=== PATIENT | male | born 1970 | race Caucasian/White ===

== ENCOUNTER → 2016-03-24 | Outpatient (CLI) | payer BC ==
--- NOTE | 2016-03-24 11:45 | ECHOS ---
DATE OF SERVICE: 03/24/2016 AGE: 45Y SEX: M HT: 69" WT: 170 lbs. Protocol Alonzo: X Others: Stress Echo Stage: 5 Dur. of Exercise: 13:45 *Heart Rate Blood Pressure *Rest: 78 Rest: 97/46 * *Max. Achieved: 151 Maximum BP: 141/66 85% PMHR: 149 100% PMHR: 175 *METS: 13.8 INDICATIONS: Abnormal EKG. MEDICATIONS: Prilosec. CLINICAL INFORMATION: Abnormal EKG, and history of smoking 1/2 pack of cigarettes a day for 15 years, not on any medications other than Prilosec. Resting EKG shows sinus rhythm, rate of 78 beats per minute, FL interval 0.16, QRS 0.08, normal ST-T waves. Utilizing a standard Alonzo protocol, a symptom-limited treadmill test was performed. Patient exercised for total of 13 minutes and 45 seconds, attained a peak heart rate of 151 beats per minute, which is approximately 86% predicted maximum heart rate without any chest pain or pressure, a couple of PVCs noted at peak exertion without any chest pain or pressure or ST segment deviations indicative of ischemia. Baseline images show normal thickening and contractibility. Postexercise images show improved contractibility and thickening consistent with normal stress echocardiogram. IMPRESSION: 1. Normal stress echocardiogram. 2. Patient has excellent cardiopulmonary fitness as indicated by O2 max and METS. 3. Patient attained peak metabolic activity equivalent to 14 to 15 METS.
== END | disposition home or self-care (01) ==
LOC: RADNMMAIN 10:42
PROVIDERS: ATTEND Family Medicine
DX: R94.31 Abnormal electrocardiogram [ECG] [EKG] (principal)
CPT/HCPCS: 93017; 93350

== ENCOUNTER 2017-10-18 09:42 | Day surgery (SDC) | payer BC ==
[2017-10-16 09:07] VITALS: BMI 25.1
[~2017-10-18 09:42] MED LIST: LACTATED RINGERS 1,000 ML IV SCH; LIDOCAINE 1% 20 ML VIAL (10MG/ML) FOR IV START INTRADERMA PRN
[2017-10-18 10:32] VITALS: RESP 16; TEMP 98
[2017-10-18] MEDS ORDERED: PROPOFOL 10 MG/ML 20 ML VIAL IV ONE (11:11)
[2017-10-18] MEDS ORDERED: LIDOCAINE 1% INJ 10MG/ML (20 ML MDV) ONE (11:11)
--- NOTE | 2017-10-18 11:28 | P.PCN ---
Date of Procedure: 10/18/17 Procedure(s) Performed: BRIEF HISTORY: Patient is a 47-year-old pleasant to 8 male, scheduled for an elective colonoscopy as a part of screening for colorectal neoplasia and family history of colon cancer. His mom was diagnosed with colon cancer at age 80. PROCEDURE PERFORMED: Colonoscopy with snare polypectomy. PREOPERATIVE DIAGNOSIS: Screening for colon cancer/family history of colon cancer. IV sedation per Anesthesia. PROCEDURE: After informed consent was obtained, the patient, was brought into the endoscopy unit. IV sedation was administered by Anesthesia under continuous monitoring. Digital rectal examination was normal. Initially the Olympus CF- 160 flexible video colonoscope was then inserted in the rectum, gradually advanced into the cecum without any difficulty. Careful examination was performed as the scope was gradually being withdrawn. Ileocecal valve and the appendiceal orifice were visualized and appeared normal. Prep was excellent. Mucosa of the cecum, ascending colon, transverse colon, descending colon appeared normal. In the sigmoid colon at 30 cm from the anal was there was a 1 cm pedunculated polyp removed by snare polypectomy. The rest of the, sigmoid colon, and rectum appeared normal. Retroflexion was performed in the rectum and no lesions were seen. The patient tolerated the procedure well. IMPRESSION: 1 cm pedunculated sigmoid colon polyp serous was snare polypectomy Rest of the colon appeared normal RECOMMENDATIONS: Findings of this examination were discussed with the patient as well as his family. He was advised to follow with the biopsy results. He was advised to have a repeat surveillance colonoscopy in 3 years from now.
[2017-10-18 12:01] VITALS: BP 110/71; PULSE 62
== END 2017-10-18 12:38 | disposition home or self-care (01) ==
LOC: ORWHC2ENDO 09:42
PROVIDERS: ATTEND Internal Medicine Gastroenterology
DX: Z12.11 Encounter for screening for malignant neoplasm of colon (principal); D12.5 Benign neoplasm of sigmoid colon; Z79.1 Long term (current) use of non-steroidal anti-inflammatories (NSAID); Z80.0 Family history of malignant neoplasm of digestive organs; Z91.040 Latex allergy status; Z88.8 Allergy status to other drugs, medicaments and biological substances
CPT/HCPCS: 45385; J2001; J2704; 88305

== ENCOUNTER → 2017-12-21 | Outpatient (CLI) | payer BC ==
--- NOTE | 2017-12-22 10:32 | CT ---
EXAMINATION TYPE: CT chest w con DATE OF EXAM: 12/21/2017 COMPARISON: None HISTORY: Wheezing and chest pain. CT DLP: 246.7 mGycm Automated exposure control for dose reduction was used. CONTRAST: CT scan of the chest is performed with IV Contrast, patient injected with 100ml mL of Isovue 300. FINDINGS: LUNGS: The lungs are grossly clear, there is no concerning parenchymal mass or nodule identified. T here is no pleural effusion or pneumothorax seen. The tracheobronchial tree is patent. MEDIASTINUM: There are no greater than 1 cm hilar or mediastinal lymph nodes. No pericardial effusi on is seen. Thoracic aorta is of normal caliber. The heart is not enlarged. UPPER ABDOMEN: No significant abnormality appreciated. OTHER: No additional significant abnormality is seen. IMPRESSION: 1.No additional significant abnormality is seen.
== END | disposition home or self-care (01) ==
LOC: RADCTMAIN 17:20
PROVIDERS: ATTEND Internal Medicine Critical Care Medicine
DX: R07.89 Other chest pain (principal)
CPT/HCPCS: 71260; Q9967

== ENCOUNTER 2021-12-13 06:26 | Emergency (ER) | payer BC ==
[2021-12-13 06:32] VITALS: BP 115/76; PULSE 54; RESP 16; TEMP 98
[2021-12-13] MEDS ORDERED: ACET/COD 300 MG/30 MG STARTER PACK 6 TAB BTL PO STA (06:58)
[2021-12-13] MEDS ORDERED: ORPHENADRINE 30 MG/ML 2 ML VIAL IM STA (06:58)
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
== END 2021-12-13 07:00 | disposition home or self-care (01) ==
LOC: EC 06:26
DX: S39.012A Strain of muscle, fascia and tendon of lower back, initial encounter (principal); K21.9 Gastro-esophageal reflux disease without esophagitis; F12.90 Cannabis use, unspecified, uncomplicated; Z91.040 Latex allergy status; Z88.8 Allergy status to other drugs, medicaments and biological substances; Z79.899 Other long term (current) drug therapy; X50.9XXA Other and unspecified overexertion or strenuous movements or postures, initial encounter
CPT/HCPCS: 99283; 96372; J2360

== ENCOUNTER 2022-05-24 06:32 | Emergency (ER) | payer BC ==
[2022-05-24 06:56] VITALS: BP 123/76; PULSE 72; TEMP 98.1
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
[2022-05-24 07:49] VITALS: RESP 18
--- NOTE | 2022-05-24 07:53 | XR ---
EXAMINATION TYPE: XR chest 2V DATE OF EXAM: 05/24/2022 7:33 AM COMPARISON: Chest radiographs from 12/09/2016, CT chest 12/21/2017 TECHNIQUE: XR chest 2V Frontal and lateral views of the chest. CLINICAL INDICATION:Male, 51 years old with history of Hemoptysis; FINDINGS: Lungs/Pleura: There is no evidence of pleural effusion, focal consolidation, or pneumothorax. Pulmonary vascularity: Unremarkable. Heart/mediastinum: Cardiomediastinal silhouette is unremarkable. Musculoskeletal: No acute osseous pathology. IMPRESSION: No acute cardiopulmonary disease/process.
[2022-05-24 07:56] LABS: Basophils % (A) 0 %; Eosinophils # (A) 0.3 k/uL (0-0.7); Eosinophils % (A) 4 %; HCT 43.9 % (39.0-53.0); HGB 14.7 gm/dL (13.0-17.5); Lymphocytes # (A) 1.4 k/uL (1.0-4.8); Lymphocytes % (A) 21 %; MCH 30.3 pg (25.0-35.0); MCHC 33.5 g/dL (31.0-37.0); MCV 90.4 fL (80.0-100.0); Mean Platelet Volume 7.3; Monocytes # (A) 0.6 k/uL (0-1.0); Monocytes % (A) 8 %; Neutrophils # (A) 4.4 k/uL (1.3-7.7); Neutrophils % (A) 64 %; Platelet Count 328 k/uL (150-450); RBC 4.85 m/uL (4.30-5.90); RDW 13.6 % (11.5-15.5); WBC 6.8 k/uL (3.8-10.6)
[2022-05-24 08:04] LABS: INR 0.9 (<1.2); Partial Thromboplastin Time 23.9 sec (22.0-30.0); Prothrombin Time 9.6 sec (9.0-12.0)
[2022-05-24 08:15] LABS: ALT 38 U/L (4-49); AST 24 U/L (17-59); African American GFR (CKD) >90 (>60 ml/min/1.73 sqM); Albumin 4.1 g/dL (3.5-5.0); Alkaline Phosphatase 45 U/L (38-126); Anion Gap 7 mmol/L; Blood Urea Nitrogen 14 mg/dL (9-20); Calcium 8.8 mg/dL (8.4-10.2); Carbon Dioxide 29 mmol/L (22-30); Chloride 106 mmol/L (98-107); Glucose 101 mg/dL (74-99); Non-African American GFR(CKD) >90 (>60 ml/min/1.73 sqM); Potassium 3.9 mmol/L (3.5-5.1); Sodium 142 mmol/L (137-145); Total Bilirubin 0.5 mg/dL (0.2-1.3); Total Protein 6.7 g/dL (6.3-8.2)
== END 2022-05-24 09:15 | disposition home or self-care (01) ==
LOC: EC 06:32
DX: J43.9 Emphysema, unspecified (principal); U07.1 COVID-19; F17.200 Nicotine dependence, unspecified, uncomplicated; F12.90 Cannabis use, unspecified, uncomplicated; Z91.040 Latex allergy status; Z88.6 Allergy status to analgesic agent
CPT/HCPCS: 36415; 71046; 80053; 85025; 85379; 85610; 85730; 93005; 99284

== ENCOUNTER 2022-08-21 20:44 | Emergency (ER) | payer BC ==
[2022-08-21 21:01] VITALS: TEMP 97.7
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
[2022-08-21 21:56] VITALS: BP 116/68; PULSE 57; RESP 18
== END 2022-08-21 21:52 | disposition home or self-care (01) ==
LOC: EC 20:44
DX: S61.042A Puncture wound with foreign body of left thumb without damage to nail, initial encounter (principal); F12.90 Cannabis use, unspecified, uncomplicated; F17.200 Nicotine dependence, unspecified, uncomplicated; Z88.6 Allergy status to analgesic agent; Z91.040 Latex allergy status; X58.XXXA Exposure to other specified factors, initial encounter
CPT/HCPCS: 99283